=== PATIENT | female | born 1945 | race Caucasian/White ===

== ENCOUNTER 2019-12-20 07:56 | Inpatient (IN) | payer MEDICARE ==
[~2019-12-20] VITALS: Ht 167.6 cm; Wt 49.1 kg
[~2019-12-20 07:56] MED LIST: ALPR0.25 PO; AMLO10TA4 PO; BACL-19 PO; DICL50TA2 PO; ESZO1TAB8 PO; GLUC500T11 PO; LISI-167 PO; OMEP20CA9 PO; POTA20PA31 PO; SPIR25TA5 PO
--- NOTE | 2019-12-20 08:18 | NUR ---
PT IN BED, NO SIGNS OF DISTRESS, TO X-RAY
[2019-12-20] MEDS ORDERED: SODIUM CHLORIDE FLUSH 10ML SYR IVF ONE (08:30)
[2019-12-20 08:55] LABS: BASOPHILS # (AUTO) 0.02 x10^3/uL (0-0.1); BASOPHILS % (AUTO) 0 % (0-1); EOSINOPHILS # (AUTO) 0.11 x10^3/uL (0-0.4); EOSINOPHILS % (AUTO) 1 % (1-7); LYMPHOCYTES # (AUTO) 1.09 x10^3/uL (1-3.4); LYMPHOCYTES % (AUTO) 9 % (22-44); MD NO; MEAN CORPUSCULAR HEMOGLOBIN 31.4 pg (27.0-34.8); MEAN CORPUSCULAR HGB CONC 32.6 g/dL (32.4-35.8); MEAN CORPUSCULAR VOLUME 96.4 fL (80-100); MEAN PLATELET VOLUME 8.7 fL (7.4-10.4); MONOCYTES # (AUTO) 0.54 x10^3/uL (0.2-0.8); MONOCYTES % (AUTO) 4 % (2-9); NEUTROPHILS # (AUTO) 11.12 x10^3/uL (1.8-6.8); NEUTROPHILS % (AUTO) 86 % (42-75); PLATELET COUNT 238 x10^3/uL (130-400); RED BLOOD COUNT 4.03 x10^6/uL (3.82-5.3); RED CELL DISTRIBUTION WIDTH 14.2 % (9.6-15.2)
[2019-12-20] MEDS ORDERED: ONDANSETRON 2MG/ML, 2ML ONE ×2 (08:59→19:48)
[2019-12-20] MEDS ORDERED: ONDANSETRON 2MG/ML, 2ML IVPush ONE (09:00)
[2019-12-20] MEDS ORDERED: MORPHINE SULFATE 4 MG/ML, 1ML ONE (09:00)
[2019-12-20] MEDS ORDERED: MORPHINE SULFATE 4 MG/ML, 1ML IVPush PRN ×2 (09:00→09:30)
[2019-12-20 09:04] LABS: ALBUMIN 3.6 g/dL (3.4-5.0); CALCIUM 8.5 mg/dL (8.5-10.1); CHLORIDE 110 mmol/L (98-107)
[2019-12-20 09:05] LABS: CREATININE 0.55 mg/dL (0.55-1.02)
[2019-12-20 09:21] LABS: ANION GAP 7 mmol/L (5-15)
--- NOTE | 2019-12-20 09:55 | NUR ---
PT TO IMAGING.
--- NOTE | 2019-12-20 09:56 | NUR ---
REPORT GIVEN TO FLOOR NURSE ACCEPTING PT.
--- NOTE | 2019-12-20 10:03 | NUR ---
PT HAS BEEN NPO SINCE 12/18
[2019-12-20 10:33] VITALS: BP 134/78
[2019-12-20] MEDS: SODIUM CHLORIDE 0.9% 1,000 ML IV SCH (10:51)
[2019-12-20] MEDS: MORPHINE SULFATE 4 MG/ML, 1ML IVPush PRN (11:38)
[2019-12-20 13:05] VITALS: BP 151/77
[2019-12-20] MEDS ORDERED: CHLORHEXIDINE 15 ML UDC MM ONE (13:30)
[2019-12-20] MEDS ORDERED: BUPIVACAINE/PF-EPI 0.5% 1:200K ONE (16:53)
[2019-12-20] MEDS ORDERED: FENTANYL PF 250 MCG/5ML ONE (17:55)
[2019-12-20] MEDS ORDERED: PHENYLEPHRINE 10 MG/ML ONE (18:03)
[2019-12-20] MEDS ORDERED: LIDOCAINE PF 2%, 5ML ONE (18:03)
[2019-12-20] MEDS ORDERED: PROMETHAZINE 25 MG/ML, 1ML IV PRN (19:00)
[2019-12-20] MEDS ORDERED: METOPROLOL 1 MG/ML, 5ML IV PRN (19:00)
[2019-12-20] MEDS ORDERED: FENTANYL PF 100 MCG/2ML IV PRN (19:00)
[2019-12-20] MEDS ORDERED: MIDAZOLAM 1 MG/ML, 2ML IV PRN (19:00)
[2019-12-20] MEDS ORDERED: hydrALAzine 20 MG/ML, 1ML IV PRN (19:00)
[2019-12-20] MEDS ORDERED: ACETAMINOPHEN 325 MG TABLET PO PRN (19:00)
[2019-12-20] MEDS ORDERED: HYDROmorphone 2 MG/ML, 1ML IVPush PRN (19:00)
[2019-12-20] MEDS ORDERED: MEPERIDINE/PF 25MG/ML,1ML IVPush PRN (19:00)
[2019-12-20] MEDS ORDERED: DIAZEPAM 5 MG/ML, 2ML IVPush PRN (19:00)
[2019-12-20] MEDS ORDERED: OXYcodone 5 MG/5 ML ORAL.SOL UDC PO PRN (19:00)
[2019-12-20] MEDS ORDERED: DEXAMETHASONE 4 MG/ML, 1ML ONE (19:48)
[2019-12-20] MEDS ORDERED: CEFAZOLIN 1,000 MG ONE (19:48)
[2019-12-20] MEDS ORDERED: PROPOFOL 10 MG/ML, 20ML ONE (19:48)
[2019-12-20] MEDS ORDERED: ROCURONIUM 10MG/ML,5ML ONE (19:48)
[2019-12-20] MEDS ORDERED: SUCCINYLCHOLINE 20 MG/ML, 10ML ONE (19:48)
[2019-12-20] MEDS ORDERED: PROMETHAZINE 25 MG/ML, 1ML ONE (20:40)
[2019-12-20] MEDS ORDERED: HYDROmorphone 1 MG/ML, 1ML INJ ONE (20:51)
[2019-12-20 23:57] VITALS: BP 113/69
[2019-12-21] MEDS: CEFAZOLIN PMX 1GM/50ML 50 ML IV SCH ×2 (01:57→07:57)
[2019-12-21 02:58] VITALS: BP 114/72
[2019-12-21 06:48] VITALS: BP 103/59
[2019-12-21] MEDS: AMLODIPINE 10 MG TAB PO SCH (07:56)
[2019-12-21] MEDS: OMEPRAZOLE 20 MG CAPSULE.DR PO SCH (07:56)
[2019-12-21] MEDS: SPIRONOLACTONE 25 MG TABLET PO SCH (07:56)
[2019-12-21] MEDS: SODIUM CHLORIDE 0.9% 1,000 ML IV SCH (07:57)
[2019-12-21] MEDS: BACLOFEN 10 MG TABLET PO PRN ×2 (07:59→17:57)
[2019-12-21 09:09] LABS: ANION GAP 7 mmol/L (5-15); CALCIUM 7.8 mg/dL (8.5-10.1); CHLORIDE 106 mmol/L (98-107); CREATININE 1.03 mg/dL (0.55-1.02)
[2019-12-21 09:51] LABS: BASOPHILS # (AUTO) 0.01 x10^3/uL (0-0.1); BASOPHILS % (AUTO) 0 % (0-1); EOSINOPHILS % (AUTO) 0 % (1-7); LYMPHOCYTES # (AUTO) 0.67 x10^3/uL (1-3.4); LYMPHOCYTES % (AUTO) 6 % (22-44); MD NO; MEAN CORPUSCULAR HEMOGLOBIN 31.6 pg (27.0-34.8); MEAN CORPUSCULAR VOLUME 95.8 fL (80-100); MONOCYTES # (AUTO) 0.85 x10^3/uL (0.2-0.8); MONOCYTES % (AUTO) 7 % (2-9); NEUTROPHILS % (AUTO) 87 % (42-75); PLATELET COUNT 235 x10^3/uL (130-400); RED BLOOD COUNT 2.53 x10^6/uL (3.82-5.3); RED CELL DISTRIBUTION WIDTH 14.1 % (9.6-15.2)
[2019-12-21 13:25] VITALS: BP 111/70
[2019-12-21 14:20] VITALS: BP 123/68
[2019-12-21] MEDS: ACETAMINOPHEN 325 MG TABLET PO PRN (14:32)
[2019-12-21 16:32] LABS: MICROSCOPIC AUTO
[2019-12-21 18:42] VITALS: BP 132/69
[2019-12-21] MEDS: MORPHINE SULFATE 4 MG/ML, 1ML IVPush PRN (22:27)
[2019-12-22] VITALS (15 sets, daily range): BP systolic 99–138; BP diastolic 62–77
[2019-12-22 06:03] LABS: MEAN CORPUSCULAR HEMOGLOBIN 31.9 pg (27.0-34.8); MEAN CORPUSCULAR HGB CONC 33.2 g/dL (32.4-35.8); MEAN CORPUSCULAR VOLUME 96.1 fL (80-100); MEAN PLATELET VOLUME 10.4 fL (7.4-10.4); PLATELET COUNT 153 x10^3/uL (130-400); RED BLOOD COUNT 2.11 x10^6/uL (3.82-5.3); RED CELL DISTRIBUTION WIDTH 14.3 % (9.6-15.2)
[2019-12-22 06:27] LABS: BASOPHILS # (AUTO) 0.02 x10^3/uL (0-0.1); BASOPHILS % (AUTO) 0 % (0-1); EOSINOPHILS # (AUTO) 0.01 x10^3/uL (0-0.4); EOSINOPHILS % (AUTO) 0 % (1-7); LYMPHOCYTES # (AUTO) 0.71 x10^3/uL (1-3.4); LYMPHOCYTES % (AUTO) 7 % (22-44); MD SCAN; MONOCYTES # (AUTO) 0.83 x10^3/uL (0.2-0.8); MONOCYTES % (AUTO) 8 % (2-9); NEUTROPHILS # (AUTO) 9.23 x10^3/uL (1.8-6.8); NEUTROPHILS % (AUTO) 86 % (42-75)
[2019-12-22] MEDS: SPIRONOLACTONE 25 MG TABLET PO SCH (08:26)
[2019-12-22] MEDS: AMLODIPINE 10 MG TAB PO SCH (08:27)
[2019-12-22] MEDS: OMEPRAZOLE 20 MG CAPSULE.DR PO SCH (08:27)
[2019-12-22] MEDS: BACLOFEN 10 MG TABLET PO SCH ×3 (10:36→21:09)
[2019-12-22] MEDS ORDERED: OXYcodone IR 5MG TABLET PO PRN (16:00)
[2019-12-22] MEDS: CEPHALEXIN 500 MG CAPSULE PO SCH (21:09)
[2019-12-23 00:56] VITALS: BP 135/80
[2019-12-23] MEDS: ACETAMINOPHEN 325 MG TABLET PO PRN (01:05)
[2019-12-23 05:29] LABS: BASOPHILS # (AUTO) 0.01 x10^3/uL (0-0.1); BASOPHILS % (AUTO) 0 % (0-1); EOSINOPHILS # (AUTO) 0.02 x10^3/uL (0-0.4); EOSINOPHILS % (AUTO) 0 % (1-7); LYMPHOCYTES # (AUTO) 1.01 x10^3/uL (1-3.4); LYMPHOCYTES % (AUTO) 13 % (22-44); MD NO; MEAN CORPUSCULAR HEMOGLOBIN 31.2 pg (27.0-34.8); MEAN CORPUSCULAR HGB CONC 33.2 g/dL (32.4-35.8); MEAN CORPUSCULAR VOLUME 93.9 fL (80-100); MEAN PLATELET VOLUME 9.2 fL (7.4-10.4); MONOCYTES # (AUTO) 0.76 x10^3/uL (0.2-0.8); MONOCYTES % (AUTO) 10 % (2-9); NEUTROPHILS # (AUTO) 6.06 x10^3/uL (1.8-6.8); NEUTROPHILS % (AUTO) 77 % (42-75); PLATELET COUNT 126 x10^3/uL (130-400); RED BLOOD COUNT 2.86 x10^6/uL (3.82-5.3); RED CELL DISTRIBUTION WIDTH 15.4 % (9.6-15.2)
[2019-12-23 06:36] VITALS: BP 129/69
[2019-12-23] MEDS: OMEPRAZOLE 20 MG CAPSULE.DR PO SCH (08:24)
[2019-12-23] MEDS: SPIRONOLACTONE 25 MG TABLET PO SCH (08:24)
[2019-12-23] MEDS: BACLOFEN 10 MG TABLET PO SCH (08:24)
[2019-12-23] MEDS: CEPHALEXIN 500 MG CAPSULE PO SCH (08:24)
[2019-12-23] MEDS: AMLODIPINE 10 MG TAB PO SCH (08:25)
[2019-12-23] MEDS ORDERED: CHOLECALCIFEROL 5,000u TAB PO SCH (09:00)
[2019-12-23] MEDS ORDERED: OXYC5TAB3 PO (10:41)
[2019-12-23] MEDS ORDERED: CEPH-376 PO (10:41)
[2019-12-23] MEDS ORDERED: CHOL500045 PO (10:41)
[2019-12-23 13:01] VITALS: BP 129/74
== END 2019-12-23 13:15 | DRG 481 ==
LOC: ED 09:18 → EDIP 09:29 → 4NE 10:22
PROVIDERS: ADMIT Internal Medicine; ATTEND Hospitalist
PROC: 0QS636Z Reposition Right Upper Femur with Intramedullary Internal Fixation Device, Percutaneous Approach (ICD-10-PCS; principal; 2019-12-20 15:30)
PROC: 30233N1 Transfusion of Nonautologous Red Blood Cells into Peripheral Vein, Percutaneous Approach (ICD-10-PCS; 2019-12-22)
DX: S72.141A Displaced intertrochanteric fracture of right femur, initial encounter for closed fracture (principal); R64 Cachexia; D62 Acute posthemorrhagic anemia; N39.0 Urinary tract infection, site not specified; Z68.1 Body mass index [BMI] 19.9 or less, adult; G14 Postpolio syndrome; I10 Essential (primary) hypertension; Z96.659 Presence of unspecified artificial knee joint; M85.80 Other specified disorders of bone density and structure, unspecified site; W01.0XXA Fall on same level from slipping, tripping and stumbling without subsequent striking against object, initial encounter; R73.9 Hyperglycemia, unspecified; Z80.0 Family history of malignant neoplasm of digestive organs; Z91.81 History of falling; Z98.82 Breast implant status; Y93.89 Activity, other specified; Y92.091 Bathroom in other non-institutional residence as the place of occurrence of the external cause; Y99.8 Other external cause status; Z88.8 Allergy status to other drugs, medicaments and biological substances
CPT/HCPCS: 36415; 36430; 71045; 76000; 80048; 81001; 82040; 82306; 83036; 84443; 85014; 85018; 85025; 86850; 86900; 86923; 93005; 96374; 96375; C1713; G0378; J0690; J1100; J1170; J2405; J2550; J2704; J3010; J0330; J2270; J2370; J7030; P9016

== ENCOUNTER 2020-02-17 08:45 | Emergency (ER) | payer MEDICARE ==
[~2020-02-17] VITALS: Ht 167.6 cm; Wt 49.0 kg
[~2020-02-17 08:45] MED LIST changes: +CEPH-376 PO; +CHOL500045 PO; +OXYC5TAB3 PO
--- NOTE | 2020-02-17 09:05 | NUR ---
BIB BY [facility] FROM HOME FOR "ABNORMAL SENSATION OF TEETH TOO LARGE TO LEFT FACE" STARTING AT 0730, NO OTHER NEUROLOGICAL SXS. HOWEVER, B/P ALSO 226/109 NO HX TIA/CVA OR NE ON ARRIVAL SYMPTOMS RESOLVED 84, 180/104 ECG OBTAINED BLOOD DRAWN FOR EMS PIV
--- NOTE | 2020-02-17 09:13 | NUR ---
to ct scan
[2020-02-17] MEDS ORDERED: LISI10TA2 PO (09:15)
[2020-02-17] MEDS ORDERED: AMOX1TAB64 PO (09:15)
[2020-02-17 09:19] LABS: BASOPHILS # (AUTO) 0.06 x10^3/uL (0-0.1); BASOPHILS % (AUTO) 1 % (0-1); EOSINOPHILS # (AUTO) 0.14 x10^3/uL (0-0.4); EOSINOPHILS % (AUTO) 2 % (1-7); LYMPHOCYTES # (AUTO) 0.94 x10^3/uL (1-3.4); LYMPHOCYTES % (AUTO) 14 % (22-44); MD NO; MEAN CORPUSCULAR HEMOGLOBIN 31.1 pg (27.0-34.8); MEAN CORPUSCULAR HGB CONC 32.4 g/dL (32.4-35.8); MEAN PLATELET VOLUME 8.7 fL (7.4-10.4); MONOCYTES # (AUTO) 0.47 x10^3/uL (0.2-0.8); MONOCYTES % (AUTO) 7 % (2-9); NEUTROPHILS # (AUTO) 5.32 x10^3/uL (1.8-6.8); NEUTROPHILS % (AUTO) 77 % (42-75); PLATELET COUNT 217 x10^3/uL (130-400); RED BLOOD COUNT 4.36 x10^6/uL (3.82-5.3); RED CELL DISTRIBUTION WIDTH 15.9 % (9.6-15.2)
[2020-02-17 09:30] LABS: ALANINE AMINOTRANSFERASE 23 U/L (12-78); ALBUMIN 3.9 g/dL (3.4-5.0); ANION GAP 9 mmol/L (5-15); CALCIUM 9.1 mg/dL (8.5-10.1); CHLORIDE 107 mmol/L (98-107); CREATININE 0.51 mg/dL (0.55-1.02)
[2020-02-17 09:35] LABS: ALKALINE PHOSPHATASE 107 U/L (45-117); BILIRUBIN,TOTAL 0.4 mg/dL (0.2-1.0); INTERNATIONAL NORMALIZED RATIO 1.04 (0.93-1.1); TOTAL PROTEIN 6.8 g/dL (6.4-8.2); TROPONIN I < 0.015 ng/mL (0.000-0.045)
[2020-02-17 10:37] LABS: MICROSCOPIC NOT IND
[2020-02-17 11:29] VITALS: BP 164/90
== END 2020-02-17 11:30 | disposition home or self-care (01) ==
LOC: ED 08:49
DX: G51.9 Disorder of facial nerve, unspecified (principal); I10 Essential (primary) hypertension; R07.89 Other chest pain; R51 Headache; R94.31 Abnormal electrocardiogram [ECG] [EKG]
CPT/HCPCS: 36415; 70450; 70551; 71045; 80053; 81003; 84484; 85025; 85610; 93005; 96374; 99285

== ENCOUNTER → 2020-12-12 | Outpatient (CLI) | payer MEDICARE ==
[~2020-12-12] MED LIST changes: +AMOX1TAB64 PO; +LISI-170 PO; +LISI10TA19 PO; -OXYC5TAB3 PO; +OXYC5TAB98 PO; +POTASSIUM; +TRAV5DRO LEFTEYE
== END | disposition home or self-care (01) ==
LOC: CARD 12:20
PROVIDERS: ATTEND Psychiatry & Neurology Neurology
DX: G40.89 Other seizures (principal)
CPT/HCPCS: 95819